=== PATIENT | male | born 1990 | race Caucasian/White ===

== ENCOUNTER 2017-07-08 03:42 | Inpatient (IN) | payer MEDICAID, OTHER ==
[~2017-07-08] VITALS: Ht 172.7 cm; Wt 80.9 kg
[2017-07-08] MEDS ORDERED: ACTIVATED CHARCOAL 50 GM/240 ML SUSPENSION PO ONE (04:00)
[2017-07-08 04:29] LABS: BASOPHILS % (AUTO) 0.4 % (0.0-2.0); EOSINOPHILS % (AUTO) 3.5 % (1.0-6.0); HEMATOCRIT 47.9 % (41-53); HEMOGLOBIN 16.5 g/dL (13.5-17.5); LYMPHOCYTES # (AUTO) 4.4 K/uL (1.0-4.8); LYMPHOCYTES % (AUTO) 43.7 % (22.0-44.0); MEAN CORPUSCULAR HGB CONC 34.4 G/dL (31.0-37.0); MEAN CORPUSCULAR VOLUME 90 fL (80-100); MONOCYTES # (AUTO) 0.6 K/uL (0.1-1.0); MONOCYTES % (AUTO) 6.4 % (2.0-9.0); NEUTROPHILS # (AUTO) 4.6 K/uL (1.8-7.7); PLATELET COUNT (AUTO) 233 K/uL (150-450); RED BLOOD CELL COUNT(AUTO) 5.32 MIL/uL (4.50-5.90); RED CELL DISTRIBUTION WIDTH 13.8 % (11.5-14.5)
[2017-07-08 04:35] LABS: ANION GAP 12 mmol/L (8-16); CALCIUM, TOTAL 9.1 mg/dL (8.8-10.5); CARBON DIOXIDE 27 mmol/L (22-29); CHLORIDE 107 mmol/L (98-107); CREATININE 1.13 mg/dL (0.60-1.30); GLOMERULAR FILTR. RATE CALC > 60 mL/min (>60); POTASSIUM 3.4 mmol/L (3.5-5.1); SODIUM SERUM 146 mmol/L (136-145); UREA NITROGEN, BLOOD 10 mg/dL (7-18)
[2017-07-08 04:42] LABS: ALANINE AMINOTRANSFERASE 45 U/L (12-78); ALBUMIN 4.6 g/dL (3.4-5.0); ASPARTATE AMINOTRANSFERASE 19 U/L (15-37); BILIRUBIN,TOTAL 0.2 mg/dL (0.1-1.0); TOTAL PROTEIN, SERUM 9.1 g/dL (6.4-8.2)
[2017-07-08 04:51] LABS: SALICYLATE 1.2 mg/dL (2.8-20.0)
[2017-07-08 05:01] LABS: ACETAMINOPHEN < 10 mcg/mL (10-30)
[2017-07-08] MEDS ORDERED: ZOLPIDEM TARTRATE 10 MG TABLET PO PRN (09:15)
[2017-07-08] MEDS ORDERED: QUEtiapine FUMARATE 100 MG TABLET PO PRN (09:15)
[2017-07-08] MEDS ORDERED: LORazepam 2 MG TABLET PO PRN ×2 (09:15→12:00)
[2017-07-08] MEDS ORDERED: ACETAMINOPHEN 325 MG TABLET PO PRN (11:45)
[2017-07-08] MEDS ORDERED: PROMETHAZINE HCL 25 MG TABLET PO PRN (11:45)
[2017-07-08] MEDS ORDERED: GuaiFENesin/D-METHORPHAN [SUGAR-FREE] 200-20MG/10 ML SYRUP UDCUP PO PRN (11:45)
[2017-07-08] MEDS ORDERED: MAGNESIUM HYDROXIDE SUSPENSION 30 ML UDCUP PO PRN (11:45)
[2017-07-08] MEDS ORDERED: LOPERAMIDE HCL 2 MG CAPSULE PO PRN ×2 (11:45→12:00)
[2017-07-08] MEDS ORDERED: HydrOXYzine PAMOATE 50 MG CAPSULE PO PRN (11:45)
[2017-07-08] MEDS ORDERED: TUBERCULIN, PURIFIED PROTEIN DERIVATIVE 5 TU/0.1 ML SYG ID ONE (11:45)
[2017-07-08] MEDS ORDERED: MAG HYDROX/AL HYDROX/SIMETH ES 30 ML SUSPENSION UDCUP PO PRN (11:45)
[2017-07-08] MEDS ORDERED: CYANOCOBALAMIN 1,000 MCG/ML VIAL IM ONE (12:00)
[2017-07-08] MEDS ORDERED: THIAMINE HCL 100 MG TABLET PO SCH (17:00)
[2017-07-08 17:40] VITALS: BP 131/63
[2017-07-08] MEDS: THIAMINE HCL 100 MG TABLET PO SCH (17:47)
[2017-07-08 18:21] VITALS: BP 131/63
[2017-07-08 18:40] VITALS: BP 132/65
[2017-07-08 19:40] VITALS: BP 130/72
[2017-07-08 20:40] VITALS: BP 130/70
[2017-07-09] VITALS (11 sets, daily range): BP systolic 127–140; BP diastolic 70–88
[2017-07-09] MEDS ORDERED: LORazepam 2 MG TABLET PO PRN (07:00)
[2017-07-09 08:49] LABS: CHOL/HDL RATIO 2.4 (4.2-7.3); POTASSIUM 3.9 mmol/L (3.5-5.1)
[2017-07-09] MEDS: MULTIVITAMINS WITH MINERALS, THERAPEUTIC TABLET PO SCH (09:39)
[2017-07-09] MEDS: FLUoxetine HCL 20 MG CAPSULE PO SCH (09:39)
[2017-07-09] MEDS: THIAMINE HCL 100 MG TABLET PO SCH ×2 (09:39→16:48)
[2017-07-09] MEDS: LORazepam 2 MG TABLET PO SCH ×4 (09:39→21:05)
[2017-07-09] MEDS: FOLIC ACID 1 MG TABLET PO SCH (09:39)
[2017-07-09] MEDS: NALTREXONE HCL 50 MG TABLET PO SCH (09:42)
[2017-07-09] MEDS ORDERED: NALT50TA PO (15:39)
[2017-07-09] MEDS ORDERED: FLUO-191 PO (15:39)
[2017-07-10] MEDS ORDERED: FLUO-191 PO (04:42)
[2017-07-10] MEDS ORDERED: THIA100 PO (04:42)
[2017-07-10] MEDS ORDERED: FOLI1 PO (04:42)
[2017-07-10] MEDS ORDERED: NALT50TA6 PO (04:42)
[2017-07-10] MEDS ORDERED: MULT-248 PO (05:00)
[2017-07-10 06:43] VITALS: BP 134/87
[2017-07-10 08:42] VITALS: BP 132/76
[2017-07-10] MEDS: THIAMINE HCL 100 MG TABLET PO SCH (09:29)
[2017-07-10] MEDS: FLUoxetine HCL 20 MG CAPSULE PO SCH (09:29)
[2017-07-10] MEDS: NALTREXONE HCL 50 MG TABLET PO SCH (09:29)
[2017-07-10] MEDS: MULTIVITAMINS WITH MINERALS, THERAPEUTIC TABLET PO SCH (09:29)
[2017-07-10] MEDS: FOLIC ACID 1 MG TABLET PO SCH (09:29)
[2017-07-10] MEDS: LORazepam 2 MG TABLET PO SCH (09:29)
[2017-07-11] MEDS ORDERED: LORazepam 1 MG TABLET PO PRN (07:00)
[2017-07-11] MEDS ORDERED: LORazepam 1 MG TABLET PO SCH (09:00)
[2017-07-12] MEDS ORDERED: LORazepam 1 MG TABLET PO PRN (07:00)
== END 2017-07-10 10:40 | disposition home or self-care (01) | DRG 751 ==
LOC: EMS 03:43 → B2S 14:33
PROVIDERS: ADMIT Psychiatry & Neurology Psychiatry; ATTEND Psychiatry & Neurology Psychiatry
DX: F33.9 Major depressive disorder, recurrent, unspecified (principal); R45.851 Suicidal ideations; Z91.19 Patient's noncompliance with other medical treatment and regimen; T45.0X2A Poisoning by antiallergic and antiemetic drugs, intentional self-harm, initial encounter; I10 Essential (primary) hypertension; F10.20 Alcohol dependence, uncomplicated; F17.210 Nicotine dependence, cigarettes, uncomplicated; Z90.49 Acquired absence of other specified parts of digestive tract
CPT/HCPCS: 84132; 93005; 99291; G0480; G0481